=== PATIENT | male | born 1960 | race Caucasian/White ===

== ENCOUNTER 2022-03-15 12:05 | Emergency (ER) | payer SELFPAY ==
[2022-03-15] MEDS ORDERED: Ondansetron PF 4 MG/2 ML Vial ONE (12:20)
[2022-03-15] MEDS ORDERED: Prochlorperazine 10 MG/2 ML VIAL IVP SCH (12:45)
[2022-03-15 12:49] LABS: #Monocytes 0.5 thou/uL (0.11-0.59); #Neutrophils 17.9 thou/uL (1.40-6.50); %Basophils 0.1 % (0.0-1.0); %Eosinophils 0.2 % (0.0-10.0); %Lymphocytes 4.9 % (21.0-51.0); %Monocytes 2.5 % (0.0-10.0); %Neutrophils 92.4 % (42.0-75.0); Hemoglobin 17.1 g/dL (14.0-18.0); Mean Corpuscular HGB CONC 36.1 g/dL (32.0-36.0); Mean Corpuscular Hemoglobin 31.1 pg (27.0-31.0); Mean Corpuscular Volume 86.1 fL (78.0-98.0); Mean Platelet Volume 7.4 fL (7.4-10.4); Platelet Count 253 thou/uL (130-400); RBC Distribution Width 11.8 % (11.5-14.5); Red Blood Cell (RBC) Count 5.49 mill/uL (4.70-6.10); White Blood Cell (WBC) Count 19.3 thou/uL (4.8-10.8)
[2022-03-15 13:08] LABS: ALT (SGPT) 19 U/L (8-55); AST (SGOT) 18 U/L (5-34); Albumin 4.5 g/dL (3.4-4.8); Alkaline Phosphatase 83 U/L (40-110); Anion Gap 19 mmol/L (10-20); BUN (Urea Nitrogen) 10 mg/dL (8.4-25.7); Bilirubin, Total 2.1 mg/dL (0.2-1.2); Calc. Creatinine Clearance 0 mL/min (70-130); Carbon Dioxide 20 mmol/L (23-31); Chloride 100 mmol/L (98-107); Estimated GFR 101; Globulin 2.6 g/dL (2.4-3.5); Glucose 348 mg/dL (80-115); Potassium 4.1 mmol/L (3.5-5.1); Protein, Total 7.1 g/dL (5.8-8.1); Sodium 135 mmol/L (136-145)
== END 2022-03-15 14:15 | disposition left against medical advice (07) ==
LOC: ERS 12:05
DX: I60.9 Nontraumatic subarachnoid hemorrhage, unspecified (principal); F17.210 Nicotine dependence, cigarettes, uncomplicated
CPT/HCPCS: 36415; 70496; 80053; 85025; 93005; 96374; J0780; J2405

== ENCOUNTER 2023-06-04 12:14 | Inpatient (IN) | payer SELFPAY ==
[~2023-06-04 12:14] MED LIST: Iopamidol-370 76% 500 ML MDV (1 ML CHARGE) ONE
[2023-06-04 13:06] LABS: #Monocytes 1.9 thou/uL (0.11-0.59); #Neutrophils 15.9 thou/uL (1.40-6.50); %Basophils 0.2 % (0.0-1.0); %Eosinophils 0.1 % (0.0-10.0); %Lymphocytes 7.1 % (21.0-51.0); %Monocytes 9.7 % (0.0-10.0); %Neutrophils 81.9 % (42.0-75.0); Hematocrit 40.6 % (42.0-52.0); Hemoglobin 14.5 g/dL (14.0-18.0); Mean Corpuscular HGB CONC 35.7 g/dL (32.0-36.0); Mean Corpuscular Hemoglobin 29.5 pg (27.0-31.0); Mean Corpuscular Volume 82.5 fl (78.0-98.0); Mean Platelet Volume 9.2 fL (7.4-10.4); Platelet Count 323 10x3/uL (130-400); RBC Distribution Width 12.1 % (11.5-14.5); Red Blood Cell (RBC) Count 4.92 mill/uL (4.70-6.10); White Blood Cell (WBC) Count 19.5 10x3/uL (4.8-10.8)
[2023-06-04 13:18] LABS: Bacteria/HPF None Seen HPF (None Seen); Bilirubin Negative (Negative); Blood, Urine Trace (Negative); CAUTI Indications for Culture Fever or rigors; Clarity Clear (Clear); Glucose, Urine (Dipstick) Greater than 1000 mg/dL (Negative); Ketone, Urine Greater than 150 mg/dL (Negative); Leukocyte Negative Leu/uL (Negative); Nitrite Negative (Negative); Protein, Urine (Dipstick) 50 mg/dL (Neg-Trace); RBC/HPF 0-3 HPF (0-3); Specific Gravity, Urine 1.035 (1.002-1.036); Squamous Epithelial None Seen HPF (0-3); Urobilinogen Normal mg/dL (Less than 2); WBC/HPF 0-3 HPF (0-3)
[2023-06-04 13:21] LABS: Urine Culture Reflex No No
[2023-06-04 13:27] LABS: ALT (SGPT) 7 U/L (8-55); AST (SGOT) 9 U/L (5-34); Albumin 3.6 g/dL (3.4-4.8); Alkaline Phosphatase 110 U/L (40-110); Anion Gap 20 mmol/L (10-20); BUN (Urea Nitrogen) 11 mg/dL (8.4-25.7); Bilirubin, Total 1.5 mg/dL (0.2-1.2); Calc. Creatinine Clearance 0 mL/min (70-130); Carbon Dioxide 19 mmol/L (23-31); Chloride 97 mmol/L (98-107); Estimated GFR 99; Globulin 3.1 g/dL (2.4-3.5); Glucose 244 mg/dL (80-115); Potassium 3.5 mmol/L (3.5-5.1); Protein, Total 6.7 g/dL (5.8-8.1); Sodium 132 mmol/L (136-145)
[2023-06-04 13:28] LABS: Hemoglobin A1c 10.2 % (4.0-6.0)
[2023-06-04] MEDS ORDERED: Sodium Chloride 0.9% 100 ML ONE (13:57)
[2023-06-04] MEDS ORDERED: Piperacillin/Tazobactam 4.5 GM VIAL ONE (13:57)
[2023-06-04] MEDS ORDERED: Vancomycin 1 GM/200 ML (FROZEN) BAG ONE (15:08)
[2023-06-04] MEDS ORDERED: Insulin Regular 300 UNITS/3 ML VIAL SC PRN (15:48)
[2023-06-04] MEDS ORDERED: Acetaminophen 325 MG TAB PO PRN (15:48)
[2023-06-04] MEDS ORDERED: Dextrose 5% in Water 1,000 ML IV PRN (15:48)
[2023-06-04] MEDS ORDERED: Dextrose 50% Abboject 50 ML SYRINGE SLOW IVP PRN (15:48)
[2023-06-04] MEDS ORDERED: Glucagon 1 MG/ML KIT IM PRN (15:48)
[2023-06-04] MEDS ORDERED: Sodium Chloride 0.9% 1,000 ML IV SCH ×2 (16:30→17:45)
[2023-06-04 16:56] VITALS: BMI 26.4
[2023-06-04] MEDS ORDERED: Vancomycin 1 GM in Premix 1 BAG IVPB SCH (17:15)
[2023-06-04] MEDS ORDERED: Piperacillin/Tazobactam 4.5 GM in Sodium Chloride 0.9% 100 ML IVPB SCH (18:00)
[2023-06-04] MEDS: Piperacillin/Tazobactam 3.375 GM in Sodium Chloride 0.9% 100 ML IVPB SCH (19:58)
[2023-06-04] MEDS ORDERED: Vancomycin 1 GM in Sodium Chloride 0.9% 250 ML 250 ML IVPB SCH (21:00)
[2023-06-05] MEDS: Piperacillin/Tazobactam 3.375 GM in Sodium Chloride 0.9% 100 ML IVPB SCH ×3 (02:58→19:02)
[2023-06-05 03:55] LABS: #Basophils 0.1 thou/uL (0.0-0.2); #Monocytes 1.9 thou/uL (0.11-0.59); #Neutrophils 18.2 thou/uL (1.40-6.50); %Basophils 0.3 % (0.0-1.0); %Monocytes 8.5 % (0.0-10.0); %Neutrophils 83.5 % (42.0-75.0); Hematocrit 38.1 % (42.0-52.0); Hemoglobin 13.3 g/dL (14.0-18.0); Mean Corpuscular HGB CONC 34.9 g/dL (32.0-36.0); Mean Corpuscular Hemoglobin 29.1 pg (27.0-31.0); Mean Corpuscular Volume 83.4 fl (78.0-98.0); Mean Platelet Volume 9.4 fL (7.4-10.4); Platelet Count 341 10x3/uL (130-400); RBC Distribution Width 12.1 % (11.5-14.5); Red Blood Cell (RBC) Count 4.57 mill/uL (4.70-6.10); White Blood Cell (WBC) Count 21.7 10x3/uL (4.8-10.8)
[2023-06-05 04:24] LABS: ALT (SGPT) 7 U/L (8-55); AST (SGOT) 8 U/L (5-34); Albumin 3.1 g/dL (3.4-4.8); Alkaline Phosphatase 109 U/L (40-110); Anion Gap 21 mmol/L (10-20); BUN (Urea Nitrogen) 9 mg/dL (8.4-25.7); Bilirubin, Total 1.2 mg/dL (0.2-1.2); Calc. Creatinine Clearance 106 mL/min (70-130); Calcium 8.7 mg/dL (7.8-10.44); Carbon Dioxide 16 mmol/L (23-31); Cardiac Risk 5.8 (Less than 4.5); Chloride 100 mmol/L (98-107); Cholesterol 144 mg/dl (< 200 Desired); Estimated GFR 97; Globulin 3.3 g/dL (2.4-3.5); Glucose 245 mg/dL (80-115); HDL Cholesterol 25 mg/dL (>60 Neg Risk); LDL Cholesterol, Calculated 87 mg/dL; Potassium 3.8 mmol/L (3.5-5.1); Protein, Total 6.4 g/dL (5.8-8.1); Sodium 133 mmol/L (136-145); Triglycerides 158 mg/dL (Less than 150)
[2023-06-05] MEDS: Vancomycin (BATCH) 1.25 GM in Premix 1 BAG IVPB SCH ×2 (06:21→17:31)
[2023-06-05] MEDS: metFORMIN 500 MG TAB PO SCH (17:34)
[2023-06-06] MEDS: Piperacillin/Tazobactam 3.375 GM in Sodium Chloride 0.9% 100 ML IVPB SCH ×3 (01:46→17:27)
[2023-06-06 05:48] LABS: #Basophils 0.1 thou/uL (0.0-0.2); #Monocytes 1.6 thou/uL (0.11-0.59); #Neutrophils 13.2 thou/uL (1.40-6.50); %Basophils 0.5 % (0.0-1.0); %Eosinophils 0.2 % (0.0-10.0); %Lymphocytes 9.4 % (21.0-51.0); %Monocytes 9.5 % (0.0-10.0); %Neutrophils 77.9 % (42.0-75.0); Hemoglobin 12.6 g/dL (14.0-18.0); Mean Corpuscular Hemoglobin 29.1 pg (27.0-31.0); Mean Corpuscular Volume 83.1 fl (78.0-98.0); Mean Platelet Volume 9.2 fL (7.4-10.4); Platelet Count 346 10x3/uL (130-400); RBC Distribution Width 12.1 % (11.5-14.5); Red Blood Cell (RBC) Count 4.33 mill/uL (4.70-6.10)
[2023-06-06 06:09] LABS: Anion Gap 17 mmol/L (10-20); BUN (Urea Nitrogen) 8 mg/dL (8.4-25.7); Calc. Creatinine Clearance 115 mL/min (70-130); Carbon Dioxide 19 mmol/L (23-31); Chloride 102 mmol/L (98-107); Estimated GFR 99; Glucose 222 mg/dL (80-115); Potassium 3.5 mmol/L (3.5-5.1); Sodium 134 mmol/L (136-145)
[2023-06-06 06:11] LABS: Vancomycin, Trough 7.1 ug/mL
[2023-06-06] MEDS: Vancomycin (BATCH) 1.25 GM in Premix 1 BAG IVPB SCH ×4 (06:23→22:29)
[2023-06-06] MEDS: metFORMIN 500 MG TAB PO SCH ×2 (09:30→17:27)
[2023-06-07] MEDS: Piperacillin/Tazobactam 3.375 GM in Sodium Chloride 0.9% 100 ML IVPB SCH ×3 (02:16→17:34)
[2023-06-07 05:49] LABS: #Basophils 0.1 thou/uL (0.0-0.2); #Eosinphils 0.1 thou/uL (0.0-0.7); #Monocytes 1.5 thou/uL (0.11-0.59); #Neutrophils 10.7 thou/uL (1.40-6.50); %Basophils 0.6 % (0.0-1.0); %Eosinophils 0.4 % (0.0-10.0); %Lymphocytes 10.2 % (21.0-51.0); %Monocytes 10.4 % (0.0-10.0); %Neutrophils 75.6 % (42.0-75.0); Hemoglobin 12.6 g/dL (14.0-18.0); Mean Corpuscular Volume 82.8 fl (78.0-98.0); Mean Platelet Volume 8.7 fL (7.4-10.4); Platelet Count 349 10x3/uL (130-400); Red Blood Cell (RBC) Count 4.35 mill/uL (4.70-6.10); White Blood Cell (WBC) Count 14.1 10x3/uL (4.8-10.8)
[2023-06-07 06:16] LABS: Vancomycin, Trough 12.9 ug/mL
[2023-06-07 06:21] LABS: Anion Gap 17 mmol/L (10-20); BUN (Urea Nitrogen) 8 mg/dL (8.4-25.7); Calc. Creatinine Clearance 133 mL/min (70-130); Carbon Dioxide 20 mmol/L (23-31); Chloride 101 mmol/L (98-107); Estimated GFR 103; Glucose 202 mg/dL (80-115); Potassium 3.6 mmol/L (3.5-5.1); Sodium 134 mmol/L (136-145)
[2023-06-07] MEDS: Vancomycin (BATCH) 1.25 GM in Premix 1 BAG IVPB SCH ×3 (06:41→22:38)
[2023-06-07] MEDS: metFORMIN 500 MG TAB PO SCH ×2 (07:12→17:34)
[2023-06-07] MEDS ORDERED: fentaNYL PF 100 MCG/2 ML SYRINGE ONE (10:39)
[2023-06-07] MEDS ORDERED: PROPOFOL 20 ML ONE (10:40)
[2023-06-07] MEDS ORDERED: PHENYLEPHRINE-NS 100 MCG/ML 10 ML SYRINGE ONE ×2 (10:44→10:52)
[2023-06-07] MEDS ORDERED: Ketorolac Tromethamine 30 MG/ML VIAL ONE ×2 (10:52→11:33)
[2023-06-07] MEDS ORDERED: PROPOFOL 200 MG/20 ML VIAL ONE (10:52)
[2023-06-07] MEDS ORDERED: Ondansetron PF 4 MG/2 ML Vial ONE ×2 (10:52→11:08)
[2023-06-07] MEDS ORDERED: fentaNYL 50 mcg/mL 1 mL Vial ONE (11:10)
[2023-06-07] MEDS ORDERED: Bupivacaine PF 0.5% 30 ML VIAL ONE (11:17)
[2023-06-07] MEDS ORDERED: EPINEPHrine 1 MG/ML VIAL ONE (11:17)
[2023-06-07] MEDS ORDERED: fentaNYL 50 mcg/mL 1 mL Vial SLOW IVP PRN (12:57)
[2023-06-07] MEDS ORDERED: glipiZIDE 5 MG TAB PO SCH (19:00)
[2023-06-07] MEDS: Gabapentin 300 MG CAP PO SCH (20:48)
[2023-06-08] MEDS: HYDROcodone/Acetaminophen 5/325 mg Tablet PO PRN ×3 (00:28→17:54)
[2023-06-08] MEDS: Piperacillin/Tazobactam 3.375 GM in Sodium Chloride 0.9% 100 ML IVPB SCH ×3 (01:32→17:45)
[2023-06-08] MEDS: Vancomycin (BATCH) 1.25 GM in Premix 1 BAG IVPB SCH ×5 (05:14→21:52)
[2023-06-08 06:47] LABS: Hematocrit 34.9 % (42.0-52.0); Hemoglobin 12.2 g/dL (14.0-18.0); Mean Corpuscular Hemoglobin 29.3 pg (27.0-31.0); Mean Corpuscular Volume 83.7 fl (78.0-98.0); Mean Platelet Volume 8.8 fL (7.4-10.4); Platelet Count 344 10x3/uL (130-400); RBC Distribution Width 12.3 % (11.5-14.5); Red Blood Cell (RBC) Count 4.17 mill/uL (4.70-6.10); White Blood Cell (WBC) Count 11.8 10x3/uL (4.8-10.8)
[2023-06-08 06:57] LABS: Delete Auto Diff?? YES; Manual Diff?? YES
[2023-06-08 07:18] LABS: Anion Gap 14 mmol/L (10-20); BUN (Urea Nitrogen) 10 mg/dL (8.4-25.7); Calc. Creatinine Clearance 110 mL/min (70-130); Calcium 8.8 mg/dL (7.8-10.44); Carbon Dioxide 23 mmol/L (23-31); Chloride 104 mmol/L (98-107); Estimated GFR 98; Glucose 149 mg/dL (80-115); Potassium 3.2 mmol/L (3.5-5.1); Sodium 138 mmol/L (136-145)
[2023-06-08 07:57] LABS: Band 8 % (5-11); CellaVision Operator ID LAB.GE; Lymphocytes 8 % (21-51); Monocytes 9 % (0-10); Myelocyte 2 % (0-0); Neutrophil 65 % (42-75); Platelet Adequacy Comment Platelets Normal; Polychromasia SLIGHT = 2-3 cells HPF (0-2); Reactive Lymphocytes 7 % (0-10); Total Cell Count 100
[2023-06-08] MEDS: glipiZIDE 5 MG TAB PO SCH ×2 (08:15→17:44)
[2023-06-08] MEDS: metFORMIN 500 MG TAB PO SCH ×2 (08:16→17:44)
[2023-06-08] MEDS: Gabapentin 300 MG CAP PO SCH ×2 (08:16→21:11)
[2023-06-09] MEDS: Piperacillin/Tazobactam 3.375 GM in Sodium Chloride 0.9% 100 ML IVPB SCH ×3 (02:00→18:44)
[2023-06-09] MEDS: Vancomycin (BATCH) 1.25 GM in Premix 1 BAG IVPB SCH (06:10)
[2023-06-09 06:34] LABS: Delete Auto Diff?? YES; Hematocrit 35.6 % (42.0-52.0); Hemoglobin 12.2 g/dL (14.0-18.0); Manual Diff?? YES; Mean Corpuscular HGB CONC 34.3 g/dL (32.0-36.0); Mean Corpuscular Hemoglobin 29.4 pg (27.0-31.0); Mean Corpuscular Volume 85.8 fl (78.0-98.0); Mean Platelet Volume 8.9 fL (7.4-10.4); Platelet Count 371 10x3/uL (130-400); RBC Distribution Width 12.4 % (11.5-14.5); Red Blood Cell (RBC) Count 4.15 mill/uL (4.70-6.10); White Blood Cell (WBC) Count 11.3 10x3/uL (4.8-10.8)
[2023-06-09 07:04] LABS: Band 3 % (5-11); CellaVision Operator ID LAB.GE; Lymphocytes 6 % (21-51); Metamyelocyte 2 % (0-0); Monocytes 10 % (0-10); Myelocyte 4 % (0-0); Neutrophil 75 % (42-75); Platelet Adequacy Comment Platelets Normal; Polychromasia SLIGHT = 2-3 cells HPF (0-2); Total Cell Count 101
[2023-06-09] MEDS: metFORMIN 500 MG TAB PO SCH ×2 (07:59→16:42)
[2023-06-09] MEDS: glipiZIDE 5 MG TAB PO SCH ×2 (07:59→16:42)
[2023-06-09] MEDS: Gabapentin 300 MG CAP PO SCH ×2 (08:00→20:55)
[2023-06-09] MEDS ORDERED: Vancomycin (BATCH) 1.25 GM in Premix 1 BAG IVPB SCH (14:00)
[2023-06-09 14:46] LABS: Vancomycin, Trough 23.1 ug/mL
[2023-06-09] MEDS: HYDROcodone/Acetaminophen 5/325 mg Tablet PO PRN ×2 (15:21→20:54)
[2023-06-09] MEDS ORDERED: Vancomycin (BATCH) 1.5 GM in Premix 1 BAG IVPB SCH (17:00)
[2023-06-09] MEDS: Vancomycin (BATCH) 1.5 GM in Premix 1 BAG IVPB SCH (17:30)
[2023-06-10] MEDS: Piperacillin/Tazobactam 3.375 GM in Sodium Chloride 0.9% 100 ML IVPB SCH ×2 (02:34→09:12)
[2023-06-10] MEDS: Vancomycin (BATCH) 1.5 GM in Premix 1 BAG IVPB SCH (06:26)
[2023-06-10] MEDS: HYDROcodone/Acetaminophen 5/325 mg Tablet PO PRN ×2 (06:26→15:25)
[2023-06-10] MEDS: metFORMIN 500 MG TAB PO SCH ×2 (09:11→16:53)
[2023-06-10] MEDS: Gabapentin 300 MG CAP PO SCH (09:11)
[2023-06-10] MEDS: glipiZIDE 5 MG TAB PO SCH ×2 (09:12→16:53)
[2023-06-10 16:58] VITALS: BP 176/74; TEMP 97.8
== END 2023-06-10 17:59 | disposition home or self-care (01) | DRG 617 ==
LOC: ERS 12:14 → T4-B 16:37
PROVIDERS: ADMIT Internal Medicine; ATTEND Family Medicine
PROC: 0Y6M0ZF Detachment at Right Foot, Partial 5th Ray, Open Approach (ICD-10-PCS; principal; 2023-06-07)
DX: E11.69 Type 2 diabetes mellitus with other specified complication (principal); E87.1 Hypo-osmolality and hyponatremia; L02.611 Cutaneous abscess of right foot; M86.9 Osteomyelitis, unspecified; E11.628 Type 2 diabetes mellitus with other skin complications; E11.65 Type 2 diabetes mellitus with hyperglycemia; D72.89 Other specified disorders of white blood cells; Z83.3 Family history of diabetes mellitus; Z79.899 Other long term (current) drug therapy; Z79.84 Long term (current) use of oral hypoglycemic drugs
CPT/HCPCS: 36415; 36416; 80048; 80053; 80061; 80202; 81001; 82565; 83036; 83605; 85025; 86140; 87040; 87070; 87077; 87149; 87186; 87205; 93005; 96365; 96367; 97139; J0171; J1885; J2405; J2543; J2704; J3010; J3370; J3370-JW; J3490; J7050; Q9967; S0020